=== PATIENT | female | born 1975 | race American Indian/Alaskan Native ===

== ENCOUNTER 2018-01-28 14:40 | Emergency (ER) | payer OTHER ==
[2018-01-28 14:49] VITALS: BP 121/75
[2018-01-28] MEDS ORDERED: NORCO 5/325 PO ONE (16:32)
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
--- NOTE | 2018-01-28 17:47 | XRay Report ---
FINAL REPORT EXAM: XR FINGER(S) 2+V RT HISTORY: right thumb pain TECHNIQUE: AP view of right hand and 2 views of right thumb. PRIORS: None. FINDINGS: No apparent fracture or dislocation. Joint spaces maintained. Soft tissues grossly unremarkable. IMPRESSION: 1. No acute osseous abnormality.
--- NOTE | 2018-01-28 17:48 | XRay Report ---
FINAL REPORT EXAM: XR WRIST 3+V RT HISTORY: right wrist pain TECHNIQUE: 4 views of right wrist. PRIORS: None. FINDINGS: No apparent fracture or dislocation. Joint spaces maintained. Soft tissues grossly unremarkable. IMPRESSION: 1. No acute osseous abnormality.
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
== END 2018-01-28 18:32 | disposition home or self-care (01) ==
LOC: ED 14:40
DX: S63.601A Unspecified sprain of right thumb, initial encounter (principal); Y04.2XXA Assault by strike against or bumped into by another person, initial encounter; Y93.89 Activity, other specified; Y92.89 Other specified places as the place of occurrence of the external cause; Y99.8 Other external cause status

== ENCOUNTER 2019-11-25 11:50 | Emergency (ER) | payer MEDICAID, OTHER ==
[2019-11-25 12:35] VITALS: BP 117/71
--- NOTE | 2019-11-25 12:37 | Event Note ---
ED Screening Note Date of service: 11/25/19 Time: 12:35 ED Screening Note: Pt complains of right hand pain after boxes fell on her at [employer] x 3 days ago This initial assessment/diagnostic orders/clinical plan/treatment(s) is/are subject to change based on patients health status, clinical progression and re- assessment by fellow clinical providers in the ED. Further treatment and workup at subsequent clinical providers discretion. Patient/guardian urged not to elope from the ED as their condition may be serious if not clinically assessed and managed. Initial orders include: xr hand
--- NOTE | 2019-11-25 13:23 | XRay Report ---
EXAMINATION: Right hand radiograph, 3 views CLINICAL INFORMATION: Right hand pain after trauma COMPARISON: None. FINDINGS: There is no evidence of acute bony fracture or significant soft tissue swelling of the righ t hand. Signer Name: Marlena Ashton MD Signed: 11/25/2019 1:18 PM Workstation Name: [id number]
[2019-11-25] MEDS ORDERED: HYDROcodone/ACETAMINOPHEN 5-325 MG TAB PO ONE (15:29)
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
== END 2019-11-25 16:16 | disposition home or self-care (01) ==
LOC: ED 11:50
DX: S63.8X1A Sprain of other part of right wrist and hand, initial encounter (principal); Z91.018 Allergy to other foods; Z98.890 Other specified postprocedural states; Z79.899 Other long term (current) drug therapy; X58.XXXA Exposure to other specified factors, initial encounter; Y93.89 Activity, other specified; Y92.89 Other specified places as the place of occurrence of the external cause; Y99.8 Other external cause status

== ENCOUNTER 2021-08-14 12:43 | Emergency (ER) | payer MEDICAID ==
[2021-08-14 12:50] VITALS: BP 140/84
[2021-08-14] MEDS ORDERED: ASPIRIN 325 MG TAB PO ONE (12:57)
[2021-08-14 13:34] LABS: Basophils # (Auto) 0.1 K/mm3 (0.0-0.1); Basophils % (Auto) 1.8 % (0.0-1.8); Eosinophils # (Auto) 0.3 K/mm3 (0.0-0.4); Eosinophils % (Auto) 3.4 % (0.0-4.3); Hematocrit 40.5 % (30.3-42.9); Hemoglobin 13.1 gm/dl (10.1-14.3); Lymphocytes # (Auto) 2.7 K/mm3 (1.2-5.4); Lymphocytes % (Auto) 33.2 % (13.4-35.0); Mean Corpuscular HGB Conc 32 % (30-34); Mean Corpuscular Volume 77 fl (79-97); Monocytes # (Auto) 0.6 K/mm3 (0.0-0.8); Platelet Count 324 K/mm3 (140-440); Red Blood Count 5.25 M/mm3 (3.65-5.03); Red Cell Distribution Width 14.2 % (13.2-15.2)
[2021-08-14 13:55] LABS: Alanine Aminotransferase 10 units/L (7-56); Albumin 4.4 g/dL (3.9-5); Blood Urea Nitrogen 7 mg/dL (7-17); Calcium 9.4 mg/dL (8.4-10.2); Hemolysis Index 7
[2021-08-14 13:58] LABS: BUN/Creatinine Ratio 10
--- NOTE | 2021-08-14 14:49 | XRay Report ---
XR chest routine 2V INDICATION / CLINICAL INFORMATION: CHEST PAIN. COMPARISON: None available. FINDINGS: SUPPORT DEVICES: None. HEART /PULMONARY VASCULATURE: No significant abnormality. LUNGS / PLEURA: No significant pulmonary or pleural abnormality. No pneumothorax. ADDITIONAL FINDINGS: No significant additional findings. IMPRESSION: 1. No acute findings. Signer Name: Oscar Thurman MD Signed: 08/14/2021 2:45 PM Workstation Name: [id number]
[2021-08-14] MEDS ORDERED: KETOROLAC 30 MG/1 ML INJ IM ONE (15:04)
--- NOTE | 2021-08-14 15:39 | Vascular Lab Report ---
DUPLEX DOPPLER LOWER EXTREMITY VEINS, RIGHT INDICATION: Right leg pain. TECHNIQUE: Duplex doppler imaging was performed through the veins of the right lower extremity using venous comp ression and other maneuvers. COMPARISON: None available. FINDINGS: Common Femoral vein: Negative. Superficial Femoral vein: Negative. Popliteal vein: Negative. Calf veins: Negative. Additional findings: None. IMPRESSION: 1. No sonographic evidence for DVT in the right lower extremity. Signer Name: Marlena Ashton MD Signed: 08/14/2021 3:34 PM Workstation Name: [email or web address]
--- NOTE | 2021-08-14 16:36 | Emergency Department Report ---
ED Chest Pain HPI - General Chief Complaint: Chest Pain Stated Complaint: CHEST PAIN Time Seen by Provider: 08/14/21 14:58 Source: patient Mode of arrival: Ambulatory Limitations: No Limitations - History of Present Illness Initial Comments: Patient presents with chest pain that is been going on for the last few days patient's chest pain is moderate she states that she feels a pressure type feeling in her chest. She is also having some right leg pain the pain does not spread anywhere. Patient denies any nausea or vomiting any trauma to her chest she does not smoke or drink. Patient also works at [employer]. Severity scale (0 -10): 7 - Related Data Previous Rx's Medication Instructions Recorded Last Taken Type Prednisone 60 mg PO QDAY #21 tablet 06/29/13 Unknown Rx Naphazoline HCl/Pheniramine 10 ml OU Q4H #1 bottle 06/05/14 Unknown Rx [Naphcon-A Eye Drops] Colloidal Oatmeal [Oatmeal Bath] 1 each TP QDAY #15 packet 04/12/15 Unknown Rx DOXYCYCLINE Hyclate [Vibramycin 100 mg PO Q12HR #30 capsule 04/12/15 Unknown Rx CAP] Loratadine (Nf) [Claritin] 10 mg PO DAILY #30 tablet 04/12/15 Unknown Rx Prednisone [predniSONE 10 mg 10 mg PO .TAPER #1 tab.ds.pk 04/12/15 Unknown Rx (6-Day Pack, 21 Tabs)] HYDROcodone/APAP 5-325 [[place] 1 each PO Q8H PRN #12 tablet 01/28/18 Unknown Rx 5/325] Cyclobenzaprine [Flexeril] 10 mg PO QHS PRN #20 tablet 11/25/19 Unknown Rx Naproxen [Naprosyn TAB] 375 mg PO BID #20 tablet 11/25/19 Unknown Rx Naproxen 250 mg PO Q6H #20 tablet 08/14/21 Unknown Rx Allergies Allergy/AdvReac Type Severity Reaction Status Date / Time shellfish derived Allergy Unknown Verified 11/25/19 12:10 Heart Score - HEART Score History: Slightly suspicious EKG: Normal Age: 45-65 Risk factors: 1-2 risk factors Troponin: < normal limit HEART Score: 2 - EKG Read Time Time EKG Completed: 12:55 EKG Read Time: 12:55 ED Review of Systems ROS: Stated complaint: CHEST PAIN Other details as noted in HPI Constitutional: denies: chills, fever Eyes: denies: eye pain, eye discharge, vision change ENT: denies: ear pain, throat pain Respiratory: denies: cough, shortness of breath, wheezing Cardiovascular: chest pain. denies: palpitations Endocrine: no symptoms reported Gastrointestinal: denies: abdominal pain, nausea, diarrhea Genitourinary: denies: urgency, dysuria, discharge Musculoskeletal: denies: back pain, joint swelling, arthralgia Skin: denies: rash, lesions Neurological: denies: headache, weakness, paresthesias Psychiatric: denies: anxiety, depression Hematological/Lymphatic: denies: easy bleeding, easy bruising ED Past Medical Hx - Past Medical History Additional medical history: eczema - Surgical History Additional Surgical History: x 2. ectopic - Social History Smoking Status: Never Smoker Substance Use Type: None - Medications Home Medications: Home Medications Medication Instructions Recorded Confirmed Last Taken Type Prednisone 60 mg PO QDAY #21 tablet 06/29/13 Unknown Rx Naphazoline HCl/Pheniramine 10 ml OU Q4H #1 bottle 06/05/14 Unknown Rx [Naphcon-A Eye Drops] Colloidal Oatmeal [Oatmeal Bath] 1 each TP QDAY #15 packet 04/12/15 Unknown Rx DOXYCYCLINE Hyclate [Vibramycin 100 mg PO Q12HR #30 capsule 04/12/15 Unknown Rx CAP] Loratadine (Nf) [Claritin] 10 mg PO DAILY #30 tablet 04/12/15 Unknown Rx Prednisone [predniSONE 10 mg 10 mg PO .TAPER #1 tab.ds.pk 04/12/15 Unknown Rx (6-Day Pack, 21 Tabs)] HYDROcodone/APAP 5-325 [[place] 1 each PO Q8H PRN #12 tablet 01/28/18 Unknown Rx 5/325] Cyclobenzaprine [Flexeril] 10 mg PO QHS PRN #20 tablet 11/25/19 Unknown Rx Naproxen [Naprosyn TAB] 375 mg PO BID #20 tablet 11/25/19 Unknown Rx Naproxen 250 mg PO Q6H #20 tablet 08/14/21 Unknown Rx ED Physical Exam - General Limitations: No Limitations General appearance: alert, in no apparent distress - Head Head exam: Present: atraumatic, normocephalic - Eye Eye exam: Present: normal appearance - ENT ENT exam: Present: mucous membranes moist - Neck Neck exam: Present: normal inspection - Respiratory Respiratory exam: Present: normal lung sounds bilaterally. Absent: respiratory distress - Cardiovascular Cardiovascular Exam: Present: regular rate, normal rhythm. Absent: systolic murmur, diastolic murmur, rubs, gallop - GI/Abdominal GI/Abdominal exam: Present: soft, normal bowel sounds - Extremities Exam Extremities exam: Present: normal inspection - Back Exam Back exam: Present: normal inspection - Neurological Exam Neurological exam: Present: alert, oriented X3 - Psychiatric Psychiatric exam: Present: normal affect, normal mood - Skin Skin exam: Present: warm, dry, intact, normal color. Absent: rash ED Course Vital Signs 08/14/21 08/14/21 12:44 15:11 Temperature 98.7 F Pulse Rate 111 H Respiratory 18 18 Rate Blood Pressure 140/84 [Right] O2 Sat by Pulse 100 Oximetry ED Medical Decision Making - Lab Data Result diagrams: 08/14/21 13:03 08/14/21 13:03 Lab Results 08/14/21 08/14/21 08/14/21 Range/Units 13:03 13:03 15:45 WBC 8.2 (4.5-11.0) K/mm3 RBC 5.25 H (3.65-5.03) M/mm3 Hgb 13.1 (10.1-14.3) gm/dl Hct 40.5 (30.3-42.9) % MCV 77 L (79-97) fl MCH 25 L (28-32) pg MCHC 32 (30-34) % RDW 14.2 (13.2-15.2) % Plt Count 324 (140-440) K/mm3 Lymph % (Auto) 33.2 (13.4-35.0) % [place] % (Auto) 7.0 (0.0-7.3) % Eos % (Auto) 3.4 (0.0-4.3) % Baso % (Auto) 1.8 (0.0-1.8) % Lymph # (Auto) 2.7 (1.2-5.4) K/mm3 [place] # (Auto) 0.6 (0.0-0.8) K/mm3 Eos # (Auto) 0.3 (0.0-0.4) K/mm3 Baso # (Auto) 0.1 (0.0-0.1) K/mm3 Seg Neutrophils % 54.6 (40.0-70.0) % Seg Neutrophils # 4.5 (1.8-7.7) K/mm3 Sodium 141 (137-145) mmol/L Potassium 3.4 L (3.6-5.0) mmol/L Chloride 103.6 (98-107) mmol/L Carbon Dioxide 20 L (22-30) mmol/L Anion Gap 21 mmol/L BUN 7 (7-17) mg/dL Creatinine 0.7 (0.6-1.2) mg/dL Estimated GFR > 60 ml/min BUN/Creatinine Ratio 10 % Glucose 78 (65-100) mg/dL Calcium 9.4 (8.4-10.2) mg/dL Total Bilirubin 0.50 (0.1-1.2) mg/dL AST 15 (5-40) units/L ALT 10 (7-56) units/L Alkaline Phosphatase 90 (35-129) units/L Troponin T < 0.010 < 0.010 (0.00-0.029) ng/mL Total Protein 7.7 (6.3-8.2) g/dL Albumin 4.4 (3.9-5) g/dL Albumin/Globulin Ratio 1.3 % - EKG Data -: EKG Interpreted by Me - EKG Data 08/14/21 16:45 EKG time 1254 rate 77 sinus rhythm left atrial enlargement no ST segment elevation no T wave inversion. - Radiology Data Radiology results: report reviewed, image reviewed Cxr: no acute cardiopulmonary disease - Medical Decision Making Chief medical diagnosis: Non-STEMI differential medical diagnosis: Pericarditis, costochondritis, DVT Ultrasound troponin IM pain medication and I will discharge patient home with follow-up with. ED work-up is unremarkable I will discharge patient. Additional verbal discharge instructions were given. Critical care attestation.: If time is entered above; I have spent that time in minutes in the direct care of this critically ill patient, excluding procedure time. ED Disposition Clinical Impression: Right leg pain Chest pain Qualifiers: Chest pain type: unspecified Qualified Code(s): R07.9 - Chest pain, unspecified Disposition: HOME / SELF CARE / HOMELESS Is pt being admited?: No Does the pt Need Aspirin: No Condition: Stable Instructions: Nonspecific Chest Pain, Adult Prescriptions: Naproxen 250 mg PO Q6H #20 tablet Referrals: PRIMARY CARE, [Primary Care Provider] - 3-5 Days
--- NOTE | 2021-08-15 09:03 | Electrocardiograph Report ---
[facility] Test Date: 2021-08-14 Test Time: 12:54:46 Pat Name: SONYA BRODERICK Department: Room: Gender: F [employer]: TV : 1975 Requested By: MASHA BAILEY Order Number: [id number] Reading MD: Gerardo Moore Measurements Intervals [place] Rate: 77 P: 53 [place]: 134 QRS: 49 QRSD: 77 T: 23 QT: 411 QTc: 464 Interpretive Statements Sinus rhythm Probable left atrial enlargement No previous ECG available for comparison Electronically Signed On 08-15-2021 9:03:22 EST by Gerardo Moore
== END 2021-08-14 17:16 | disposition home or self-care (01) ==
LOC: ED 12:43
DX: M79.604 Pain in right leg (principal); R07.9 Chest pain, unspecified; Z91.013 Allergy to seafood; Z87.2 Personal history of diseases of the skin and subcutaneous tissue
CPT/HCPCS: 36415; 71046; 80053; 84484; 85025; 93005; 93971; 96372; 99284; J1885

== ENCOUNTER 2021-10-04 08:07 | Emergency (ER) | payer MEDICAID ==
--- NOTE | 2021-10-04 09:06 | XRay Report ---
CHEST 2 VIEWS INDICATION / CLINICAL INFORMATION: COUGH WORSENING AFTER HAVING COVID. COMPARISON: 08/14/2021 FINDINGS: SUPPORT DEVICES: None. HEART / MEDIASTINUM: No significant abnormality. LUNGS / PLEURA: No significant pulmonary or pleural abnormality. No pneumothorax. ADDITIONAL FINDINGS: No significant additional findings. IMPRESSION: 1. No acute findings. Signer Name: Tru Tucker MD Signed: 10/04/2021 9:02 AM Workstation Name: [id number]
[2021-10-04] MEDS ORDERED: dexAMETHasone 4 MG/ML VIAL IV ONE (09:37)
[2021-10-04] MEDS ORDERED: dexAMETHasone 20 MG/5 ML VIAL IV ONE (09:37)
--- NOTE | 2021-10-04 09:38 | Emergency Department Report ---
ED General Adult HPI - General Chief complaint: Pain General Stated complaint: DISCOMFORT AFTER COVID POSITIVE Time Seen by Provider: 10/04/21 09:00 Source: patient Mode of arrival: Ambulatory Limitations: No Limitations - History of Present Illness Initial comments: 45-year-old female who denies any significant past medical history presents to the ER today with Covid-like flulike symptoms. Patient states that she was first diagnosed with Covid around September 12. She states that she had a typical URI symptoms, cough, congestion and fever. She states that she had started to feel better for about 2 days, but last week Wednesday she states that her symptoms returned, with nasal congestion, rhinorrhea, nonproductive cough, generalized body aches but more so in the flanks and lower back, urinary frequency, generalized fatigue and recently she started having tightness in the substernal chest. She reports no wheezing, or shortness of breath. She reports no lower extremity swelling or calf pain. She states that she is only been taking [id number] medications. She has not been prescribed any medications. She states that she did have a COVID-19 vaccine, the Pfizer back in February 2021. She denies any illicit drug use, tobacco use or alcohol abuse. MD Complaint: Sick -: days(s) - Related Data Previous Rx's Medication Instructions Recorded Last Taken Type Albuterol Mdi (or & Nicu Only) 2 puff IH QID PRN #8.5 gram 10/04/21 Unknown Rx [ProAir HFA Inhaler] Amoxicillin/Potassium Clav 1 each PO BID #14 10/04/21 Unknown Rx [Augmentin 875-125 Tablet] Cetirizine HCl [Zyrtec 10mg tab] 10 mg PO DAILY #30 10/04/21 Unknown Rx Promethazine /Codeine 5 ml PO Q6H PRN #100 ml 10/04/21 Unknown Rx [Phenergan/Codeine 6.25-10 mg/5 ml] dexAMETHasone [Decadron] 4 mg PO Q12H #10 tablet 10/04/21 Unknown Rx Allergies Allergy/AdvReac Type Severity Reaction Status Date / Time shellfish derived Allergy Unknown Verified 10/04/21 10:10 ED Review of Systems ROS: Stated complaint: DISCOMFORT AFTER COVID POSITIVE Other details as noted in HPI ED Past Medical Hx - Past Medical History Additional medical history: eczema - Surgical History Additional Surgical History: x 2. ectopic - Social History Smoking Status: Never Smoker Substance Use Type: None - Medications Home Medications: Home Medications Medication Instructions Recorded Confirmed Last Taken Type Albuterol Mdi (or & Nicu Only) 2 puff IH QID PRN #8.5 gram 10/04/21 Unknown Rx [ProAir HFA Inhaler] Amoxicillin/Potassium Clav 1 each PO BID #14 10/04/21 Unknown Rx [Augmentin 875-125 Tablet] Cetirizine HCl [Zyrtec 10mg tab] 10 mg PO DAILY #30 10/04/21 Unknown Rx Promethazine /Codeine 5 ml PO Q6H PRN #100 ml 10/04/21 Unknown Rx [Phenergan/Codeine 6.25-10 mg/5 ml] dexAMETHasone [Decadron] 4 mg PO Q12H #10 tablet 10/04/21 Unknown Rx ED Physical Exam - General Limitations: No Limitations ED Course Vital Signs 10/04/21 10/04/21 10/04/21 08:14 09:42 15:08 Temperature 98.8 F 97.7 F Pulse Rate 89 98 H Respiratory 20 16 Rate Blood Pressure 131/85 Blood Pressure 131/85 130/79 [Right] O2 Sat by Pulse 100 100 Oximetry ED Medical Decision Making - Lab Data Result diagrams: 10/04/21 09:45 10/04/21 09:45 - EKG Data -: EKG Interpreted by Ks EKG shows normal: sinus rhythm Rate: normal (68) - EKG Data Interpretation: normal EKG - Radiology Data Radiology results: report reviewed Patient: SONYA BRODERICK MR #: [id number] : 1975 Acct:[id number] Age/Sex: 45 / F ADM Date: 10/04/21 Loc: ED Attending Dr: Ordering Physician: AVERY BRIDGES Date of Service: 10/04/21 Procedure(s): XR chest routine 2V Accession Number(s): [id number] cc: AVERY BRIDGES Fluoro Time In Minutes: CHEST 2 VIEWS INDICATION / CLINICAL INFORMATION: COUGH WORSENING AFTER HAVING COVID. COMPARISON: 08/14/2021 FINDINGS: SUPPORT DEVICES: None. HEART / MEDIASTINUM: No significant abnormality. LUNGS / PLEURA: No significant pulmonary or pleural abnormality. No pneumothorax. ADDITIONAL FINDINGS: No significant additional findings. IMPRESSION: 1. No acute findings. Signer Name: Tru Tucker MD Signed: 10/04/2021 9:02 AM Workstation Name: [id number] Transcribed By: TL Dictated By: Tru Tucker MD Electronically Authenticated By: Tru Tucker MD Signed Date/Time: 10/04/21901 DD/ 0 TD/TT: - Medical Decision Making Work today unremarkable including normal chest x-ray. Patient vital signs were stable without any signs of tachycardia, hypotension or hypoxia. She was also afebrile. She did receive IV fluids, and IV meds after which she did start feeling better. She was not toxic, was significantly ill-appearing, and she was not in any acute respiratory or pain distress. She had no meningeal signs on exam. Abdomen was soft and nontender, and she was neurologically intact with a normal gait. Based on patient current condition, and unremarkable work-up including stable vital signs there is no indication for admission to the hospital at this time. Discussed all results with patient. Informed her that symptoms could still be related to Covid, but since her symptoms have been ongoing since September 11 will cover for possible bacterial sinus infection,/bronchitis. Recommend to continue drinking lots of fluids. She can take Tylenol and ibuprofen for pain. Recommend follow-up with her PCP. Patient stable at time of discharge Critical care attestation.: If time is entered above; I have spent that time in minutes in the direct care of this critically ill patient, excluding procedure time. ED Disposition Clinical Impression: COVID-19 virus infection, Sinusitis, URI with cough and congestion Disposition: HOME / SELF CARE / HOMELESS Is pt being admited?: No Does the pt Need Aspirin: No Condition: Stable Instructions: Cough, Adult, [id number], Upper Respiratory Infection, Adult, Sinusitis, Adult, Vyjn-jk-Nruy, COVID-19: How to Protect Yourself and Others - [facility] Additional Instructions: Take the medications given here as prescribed. Drink lots of fluids. You can take Tylenol and ibuprofen for any pain or fever. Follow-up with your primary care doctor next week. Return to the ER if your symptoms worsens or changes in any way. Prescriptions: Amoxicillin/Potassium Clav [Augmentin 875-125 Tablet] 1 each PO BID #14 dexAMETHasone [Decadron] 4 mg PO Q12H #10 tablet Promethazine /Codeine [Phenergan/Codeine 6.25-10 mg/5 ml] 5 ml PO Q6H PRN #100 ml PRN Reason: cough Albuterol Mdi (or & Nicu Only) [ProAir HFA Inhaler] 2 puff IH QID PRN #8.5 gram PRN Reason: Shortness Of Breath Cetirizine HCl [Zyrtec 10mg tab] 10 mg PO DAILY #30 Referrals: PRIMARY CARE,MD [Primary Care Provider] - 3-5 Days Forms: Work/School Release Form(ED) Time of Disposition: 12:27
[2021-10-04 09:48] LABS: Bilirubin,Urine NEG (Negative); Blood,Urine NEG (Negative); Color,Urine Yellow (Yellow); Mucus,Urine FEW /HPF; Urobilinogen,Urine < 2.0 mg/dL (<2.0)
[2021-10-04 10:20] LABS: Basophils # (Auto) 0.2 K/mm3 (0.0-0.1); Basophils % (Auto) 2.7 % (0.0-1.8); Eosinophils # (Auto) 0.2 K/mm3 (0.0-0.4); Eosinophils % (Auto) 3.3 % (0.0-4.3); Hematocrit 40.6 % (30.3-42.9); Hemoglobin 12.6 gm/dl (10.1-14.3); Lymphocytes # (Auto) 1.9 K/mm3 (1.2-5.4); Lymphocytes % (Auto) 27.5 % (13.4-35.0); Mean Corpuscular HGB Conc 31 % (30-34); Mean Corpuscular Volume 78 fl (79-97); Monocytes # (Auto) 0.6 K/mm3 (0.0-0.8); Monocytes % (Auto) 8.6 % (0.0-7.3); Platelet Count 329 K/mm3 (140-440); Red Blood Count 5.19 M/mm3 (3.65-5.03); Red Cell Distribution Width 14.8 % (13.2-15.2)
[2021-10-04 10:41] LABS: Alanine Aminotransferase 13 units/L (7-56); Albumin 4.3 g/dL (3.9-5); Blood Urea Nitrogen 10 mg/dL (7-17); Calcium 9.1 mg/dL (8.4-10.2); Hemolysis Index 5
[2021-10-04 10:55] LABS: BUN/Creatinine Ratio 14
[2021-10-04] MEDS ORDERED: SODIUM CHLORIDE 0.9% 1000 ML 1,000 ML IV ONE (11:17)
[2021-10-04 15:16] VITALS: BP 130/79
--- NOTE | 2021-10-08 08:25 | Electrocardiograph Report ---
[facility] Test Date: 2021-10-04 Test Time: 12:05:29 Pat Name: SONYA BRODERICK Department: Room: Gender: F Engraver Wood: MURPHY : 1975 Requested By: BRAULIO HARVEY Order Number: [id number] Reading MD: America Warner Measurements Intervals [place] Rate: 68 P: 33 CT: 125 QRS: 46 QRSD: 87 T: 14 QT: 402 QTc: 427 Interpretive Statements Sinus rhythm Compared to ECG 08/14/2021 12:54:46 No significant changes Electronically Signed On 10-08-2021 8:25:23 EST by America Warner
== END 2021-10-04 15:17 | disposition home or self-care (01) ==
LOC: ED 08:07
DX: U07.1 COVID-19 (principal); J32.9 Chronic sinusitis, unspecified; Z91.013 Allergy to seafood; Z98.890 Other specified postprocedural states; Z79.899 Other long term (current) drug therapy
CPT/HCPCS: 36415; 71046; 80053; 81001; 84703; 85025; 93005; 96361; 96374; 99284; J1100; J7030; Q0162

== ENCOUNTER 2021-11-21 09:31 | Emergency (ER) | payer MEDICAID ==
--- NOTE | 2021-11-21 11:03 | Emergency Department Report ---
ED Extremity Problem HPI - General Chief complaint: Extremity Injury, Lower Stated complaint: leg swelling, left and right Time Seen by Provider: 11/21/21 10:58 Source: patient Mode of arrival: Ambulatory Limitations: No Limitations - History of Present Illness Initial comments: 45-year-old -Armenian female resents to the emergency room for bilateral lower leg swelling with right leg worse. She complains of calf pain and tenderness and pain that shoots up from the back of her right knee to her groin area. Patient had a recent diagnosis of Covid and has been dealing with long haul lung issues. She also complains of heaviness in her chest. She has seen the welder journeyman and is scheduled for echocardiogram and a CT of her chest. She is requesting a referral to a delivery truck driver heavy as she is constantly has chest discomfort with breath. MD Complaint: extremity pain, extremity swelling Onset/Timin -: days(s) Location: left, right (Worse in right), lower extremity History of Same: No -: Yes myalgia, Yes associated dyspnea, Yes associated chest pain Quality: stabbing, aching, sharp Consistency: constant Improves with: nothing Worsens with: walking, palpation - Related Data Previous Rx's Medication Instructions Recorded Last Taken Type Albuterol Mdi (or & Nicu Only) 2 puff IH QID PRN #8.5 gram 10/04/21 Unknown Rx [ProAir HFA Inhaler] Amoxicillin/Potassium Clav 1 each PO BID #14 10/04/21 Unknown Rx [Augmentin 875-125 Tablet] Cetirizine HCl [Zyrtec 10mg tab] 10 mg PO DAILY #30 10/04/21 Unknown Rx Promethazine /Codeine 5 ml PO Q6H PRN #100 ml 10/04/21 Unknown Rx [Phenergan/Codeine 6.25-10 mg/5 ml] dexAMETHasone [Decadron] 4 mg PO Q12H #10 tablet 10/04/21 Unknown Rx Ibuprofen [Motrin 800 MG tab] 800 mg PO Q8HR PRN #30 tablet 11/21/21 Unknown Rx Allergies Allergy/AdvReac Type Severity Reaction Status Date / Time latex Allergy Hives Verified 11/21/21 09:36 shellfish derived Allergy Unknown Verified 11/21/21 09:36 ED Review of Systems ROS: Stated complaint: leg swelling, left and right Other details as noted in HPI ED Past Medical Hx - Past Medical History Additional medical history: eczema - Surgical History Additional Surgical History: x 2. ectopic - Social History Smoking Status: Never Smoker Substance Use Type: None - Medications Home Medications: Home Medications Medication Instructions Recorded Confirmed Last Taken Type Albuterol Mdi (or & Nicu Only) 2 puff IH QID PRN #8.5 gram 10/04/21 Unknown Rx [ProAir HFA Inhaler] Amoxicillin/Potassium Clav 1 each PO BID #14 10/04/21 Unknown Rx [Augmentin 875-125 Tablet] Cetirizine HCl [Zyrtec 10mg tab] 10 mg PO DAILY #30 10/04/21 Unknown Rx Promethazine /Codeine 5 ml PO Q6H PRN #100 ml 10/04/21 Unknown Rx [Phenergan/Codeine 6.25-10 mg/5 ml] dexAMETHasone [Decadron] 4 mg PO Q12H #10 tablet 10/04/21 Unknown Rx Ibuprofen [Motrin 800 MG tab] 800 mg PO Q8HR PRN #30 tablet 11/21/21 Unknown Rx ED Physical Exam - General Limitations: No Limitations General appearance: alert, in distress - Head Head exam: Present: atraumatic, normocephalic - Eye Eye exam: Present: normal appearance - ENT ENT exam: Present: mucous membranes moist, normal external ear exam - Neck Neck exam: Present: normal inspection - Respiratory Respiratory exam: Absent: respiratory distress, accessory muscle use - Cardiovascular Cardiovascular Exam: Present: regular rate - Extremities Exam Extremities exam: Present: full ROM, tenderness (Right groin), calf tenderness (Right greater than left) - Back Exam Back exam: Present: normal inspection, full ROM - Neurological Exam Neurological exam: Present: alert, oriented X3, normal gait - Psychiatric Psychiatric exam: Present: normal affect, normal mood - Skin Skin exam: Present: warm, dry, intact, normal color. Absent: rash ED Course Vital Signs 11/21/21 09:38 Temperature 98.8 F Pulse Rate 82 Respiratory 16 Rate Blood Pressure 127/79 O2 Sat by Pulse 100 Oximetry ED Medical Decision Making - Radiology Data Radiology results: report reviewed [facility] [address] [place] [address] XRay Report Signed Patient: SONYA BRODERICK MR #: [id number] : 1975 Acct:[id number] Age/Sex: 45 / F ADM Date: 11/21/21 Loc: ED Attending Dr: Ordering Physician: LILI ALCANTAR Date of Service: 11/21/21 Procedure(s): XR chest routine 2V Accession Number(s): [id number] cc: LILI ALCANTAR Fluoro Time In Minutes: CHEST 2 VIEWS INDICATION: sob chest pressure. COMPARISON: 10/04/2021 FINDINGS: SUPPORT DEVICES: None. HEART: Within normal limits. LUNGS/PLEURA: No acute air space or interstitial disease. No pneumothorax. ADDITIONAL FINDINGS: None. IMPRESSION: 1. No acute findings. Signer Name: Dipak Pretty MD Signed: 11/21/2021 1:21 PM Workstation Name: [id number] Transcribed By: Dictated By: Dipak Pretty MD Electronically Authenticated By: Dipak Pretty MD Signed Date/Time: 11/21/211320 DD/ 20 TD/TT: - Medical Decision Making 45-year-old -Armenian female resents to the emergency room for bilateral lower leg swelling with right leg worse. She complains of calf pain and tenderness and pain that shoots up from the back of her right knee to her groin area. Patient had a recent diagnosis of Covid and has been dealing with long haul lung issues. She also complains of heaviness in her chest. She has seen the welder journeyman and is scheduled for echocardiogram and a CT of her chest. She is requesting a referral to a delivery truck driver heavy as she is constantly has chest discomfort with breath. Bilateral lower leg venous Dopplers has been ordered. Chest x-ray ordered Critical care attestation.: If time is entered above; I have spent that time in minutes in the direct care of this critically ill patient, excluding procedure time. ED Disposition Clinical Impression: Bilateral leg pain Disposition: HOME / SELF CARE / HOMELESS Is pt being admited?: No Does the pt Need Aspirin: No Condition: Stable Instructions: Pain Without a Known Cause Additional Instructions: Chest x-ray hand venous Dopplers are negative for any acute findings. I recommend Tylenol ibuprofen for pain. Follow-up with the delivery truck driver heavy and your welder journeyman for further work-up. Prescriptions: Ibuprofen [Motrin 800 MG tab] 800 mg PO Q8HR PRN #30 tablet PRN Reason: Pain , Severe (7-10) Referrals: PRIMARY CARE, [Primary Care Provider] - 3-5 Days OTTO SETH MD [Staff Physician] - 3-5 Days Time of Disposition: 14:12
--- NOTE | 2021-11-21 12:01 | Vascular Lab Report ---
DUPLEX DOPPLER LOWER EXTREMITY VEINS, BILATERAL INDICATION: Calf pain and upper thigh near groin pain. TECHNIQUE: Duplex doppler imaging was performed through the veins of both lower extremities using ve nous compression and other maneuvers. COMPARISON: 08/14/2021. FINDINGS: Right Common femoral vein: Negative. Right Superficial femoral vein: Negative. Right Popliteal vein: Negative. Right Calf veins: Negative. Left Common femoral vein: Negative. Left Superficial femoral vein: Negative. Left Popliteal vein: Negative. Left Calf veins: Negative. Additional findings: None. IMPRESSION: No sonographic evidence for DVT in either lower extremity. Signer Name: Dionisio Lo Jr, MD Signed: 11/21/2021 11:57 AM Workstation Name: [id number]
--- NOTE | 2021-11-21 13:26 | XRay Report ---
CHEST 2 VIEWS INDICATION: sob chest pressure. COMPARISON: 10/04/2021 FINDINGS: SUPPORT DEVICES: None. HEART: Within normal limits. LUNGS/PLEURA: No acute air space or interstitial disease. No pneumothorax. ADDITIONAL FINDINGS: None. IMPRESSION: 1. No acute findings. Signer Name: Dipak Pretty MD Signed: 11/21/2021 1:21 PM Workstation Name: [id number]
[2021-11-21 15:03] VITALS: BP 118/73
== END 2021-11-21 15:03 | disposition home or self-care (01) ==
LOC: ED 09:31
DX: M79.604 Pain in right leg (principal); M79.605 Pain in left leg; R22.43 Localized swelling, mass and lump, lower limb, bilateral; Z98.890 Other specified postprocedural states; Z91.013 Allergy to seafood; Z91.040 Latex allergy status
CPT/HCPCS: 71046; 93970; 99284

== ENCOUNTER 2021-11-28 11:15 | Emergency (ER) | payer MEDICAID ==
[2021-11-28 11:20] VITALS: BP 146/82
--- NOTE | 2021-11-28 11:46 | Emergency Department Report ---
ED Abdominal Pain HPI - General Chief Complaint: Dizziness Stated Complaint: DIZZY/AB PAIN Time Seen by Provider: 11/28/21 11:44 Source: patient Mode of arrival: Ambulatory Limitations: No Limitations - History of Present Illness Initial Comments: 45 yof presents to ed for evaluation of several month history of abdominal pain and recent onset of dizziness. She states that she has had intermittent abdominal pain since having COVID a few months ago, but over the past few days, abdominal pain has gotten worse. She has had some nausea along with decreased appetite but denies vomiting, diarrhea, fever, dysuria, and vaginal discharge. She states that she had some dizziness today. MD Complaint: abdominal pain -: Gradual, month(s) (2-3) Location: diffuse Radiation: none Migration to: no migration (but worse to LL and LUQ) Severity scale (0 -10): 7 Quality: aching Consistency: constant Worsens With: movement Associated Symptoms: nausea. denies: vomiting, diarrhea, fever, chills, constipation, dysuria, hematemesis, hematochezia, melena, hematuria - Related Data Previous Rx's Medication Instructions Recorded Last Taken Type Albuterol Mdi (or & Nicu Only) 2 puff IH QID PRN #8.5 gram 10/04/21 Unknown Rx [ProAir HFA Inhaler] Amoxicillin/Potassium Clav 1 each PO BID #14 10/04/21 Unknown Rx [Augmentin 875-125 Tablet] Cetirizine HCl [Zyrtec 10mg tab] 10 mg PO DAILY #30 10/04/21 Unknown Rx Promethazine /Codeine 5 ml PO Q6H PRN #100 ml 10/04/21 Unknown Rx [Phenergan/Codeine 6.25-10 mg/5 ml] dexAMETHasone [Decadron] 4 mg PO Q12H #10 tablet 10/04/21 Unknown Rx Ibuprofen [Motrin 800 MG tab] 800 mg PO Q8HR PRN #30 tablet 11/21/21 Unknown Rx Polyethylene Glycol 3350 [Miralax] 119 gm PO DAILY #1 bottle 11/28/21 Unknown Rx Allergies Allergy/AdvReac Type Severity Reaction Status Date / Time latex Allergy Hives Verified 11/21/21 09:36 shellfish derived Allergy Unknown Verified 11/21/21 09:36 ED Review of Systems ROS: Stated complaint: DIZZY/AB PAIN Other details as noted in HPI Comment: All other systems reviewed and negative Constitutional: denies: chills, diaphoresis, fever, malaise, weakness Eyes: denies: eye pain, eye discharge ENT: denies: ear pain, throat pain Respiratory: denies: cough, orthopnea, shortness of breath, SOB with exertion, SOB at rest Cardiovascular: denies: chest pain, palpitations, dyspnea on exertion, orthopnea, edema, syncope, paroxysmal nocturnal dyspnea Endocrine: no symptoms reported Gastrointestinal: abdominal pain, nausea. denies: vomiting, diarrhea, hematemesis, melena, hematochezia Genitourinary: denies: urgency, dysuria, frequency, hematuria, discharge Musculoskeletal: denies: back pain, joint swelling Skin: denies: rash, lesions, change in color Neurological: denies: headache, weakness, numbness Psychiatric: denies: anxiety, depression Hematological/Lymphatic: denies: easy bleeding, easy bruising ED Past Medical Hx - Past Medical History Additional medical history: eczema - Surgical History Additional Surgical History: x 2. ectopic - Social History Smoking Status: Never Smoker Substance Use Type: None - Medications Home Medications: Home Medications Medication Instructions Recorded Confirmed Last Taken Type Albuterol Mdi (or & Nicu Only) 2 puff IH QID PRN #8.5 gram 10/04/21 Unknown Rx [ProAir HFA Inhaler] Amoxicillin/Potassium Clav 1 each PO BID #14 10/04/21 Unknown Rx [Augmentin 875-125 Tablet] Cetirizine HCl [Zyrtec 10mg tab] 10 mg PO DAILY #30 10/04/21 Unknown Rx Promethazine /Codeine 5 ml PO Q6H PRN #100 ml 10/04/21 Unknown Rx [Phenergan/Codeine 6.25-10 mg/5 ml] dexAMETHasone [Decadron] 4 mg PO Q12H #10 tablet 10/04/21 Unknown Rx Ibuprofen [Motrin 800 MG tab] 800 mg PO Q8HR PRN #30 tablet 11/21/21 Unknown Rx Polyethylene Glycol 3350 [Miralax] 119 gm PO DAILY #1 bottle 11/28/21 Unknown Rx ED Physical Exam - General Limitations: No Limitations General appearance: alert, in no apparent distress - Head Head exam: Present: atraumatic, normocephalic - Eye Eye exam: Present: normal appearance. Absent: conjunctival injection - Neck Neck exam: Present: normal inspection. Absent: tenderness, lymphadenopathy - Respiratory Respiratory exam: Present: normal lung sounds bilaterally. Absent: respiratory distress, wheezes, rales, rhonchi, chest wall tenderness - Cardiovascular Cardiovascular Exam: Present: regular rate, tachycardia - GI/Abdominal GI/Abdominal exam: Present: soft, distended, tenderness (LLQ and LUQ), normal bowel sounds - Extremities Exam Extremities exam: Present: normal inspection - Back Exam Back exam: Present: normal inspection. Absent: tenderness, CVA tenderness (R), CVA tenderness (L), muscle spasm, paraspinal tenderness, vertebral tenderness - Neurological Exam Neurological exam: Present: alert, oriented X3 - Psychiatric Psychiatric exam: Present: normal affect, normal mood - Skin Skin exam: Present: warm, dry, intact, normal color ED Course Vital Signs 11/28/21 11:16 Temperature 98.4 F Pulse Rate 103 H Respiratory 18 Rate Blood Pressure 146/82 [Right] O2 Sat by Pulse 97 Oximetry ED Medical Decision Making - Lab Data Result diagrams: 11/28/21 11:51 11/28/21 11:51 - EKG Data EKG shows normal: sinus rhythm - EKG Data Interpretation: no acute changes, normal EKG - Radiology Data Radiology results: report reviewed, image reviewed CT abdomen and pelvis with contrast IMPRESSION: 1. No acute abnormality of the abdomen or pelvis. 2. Moderate colonic stool burden, may reflect constipation. No evidence of localized bowel inflammation or obstruction. 3. Fibroid uterus with 3.7 cm simple right adnexal cyst. No routine follow-up is required. 4. Other incidental findings as above. - Medical Decision Making 45 yof presents to ed for evaluation of several month history of abdominal pain and recent onset of dizziness. She states that she has had intermittent abdominal pain since having COVID a few months ago, but over the past few days, abdominal pain has gotten worse. She has had some nausea along with decreased appetite but denies vomiting, diarrhea, fever, dysuria, and vaginal discharge. She states that she had some dizziness today. EKG wnl. CT noted to have constipation and uterine fibroids. Patient was given one time bottle of mag citrate and Miralax to take daily until she has some improvement. She was advised to increase dietary fiber and water intake. She verbalized understanding of and agreement with plan of care. Critical care attestation.: If time is entered above; I have spent that time in minutes in the direct care of this critically ill patient, excluding procedure time. ED Disposition Clinical Impression: Constipation Qualifiers: Constipation type: unspecified constipation type Qualified Code(s): K59.00 - Constipation, unspecified Fibroid, uterine Qualifiers: Uterine leiomyoma location: unspecified location Qualified Code(s): D25.9 - Le iomyoma of uterus, unspecified Disposition: 01 HOME / SELF CARE / HOMELESS Is pt being admited?: No Does the pt Need Aspirin: No Condition: Stable Instructions: Constipation, Adult, Sdyz-qf-Ysff, Uterine Fibroids, [id number] Additional Instructions: Take medications as prescribed. Increase fiber in your diet. Follow-up with your primary care provider if no improvement or worsening symptoms. Prescriptions: Polyethylene Glycol 3350 [Miralax] 119 gm PO DAILY #1 bottle Referrals: PRIMARY CAREMD [Referring] - 3-5 Days CRISELDA SANDOVAL MD [Staff Physician] - 3-5 Days Forms: Work/School Release Form(ED) Time of Disposition: 15:31
[2021-11-28 12:15] LABS: Hematocrit 36.4 % (30.3-42.9); Hemoglobin 12.1 gm/dl (10.1-14.3); Mean Corpuscular HGB Conc 33 % (30-34); Mean Corpuscular Volume 77 fl (79-97); Platelet Count 300 K/mm3 (140-440); Red Cell Distribution Width 14.6 % (13.2-15.2)
[2021-11-28 12:24] LABS: Alanine Aminotransferase 10 units/L (7-56); Albumin 3.8 g/dL (3.9-5); Blood Urea Nitrogen 7 mg/dL (7-17); Calcium 9.2 mg/dL (8.4-10.2); Hemolysis Index 31
[2021-11-28 12:41] LABS: BUN/Creatinine Ratio 10
[2021-11-28 13:12] LABS: HCG Qualitative,Urine Negative (Negative)
[2021-11-28 13:16] LABS: Bacteria,Urine 1+ /HPF (Negative); Bilirubin,Urine NEG (Negative); Blood,Urine NEG (Negative); Color,Urine Yellow (Yellow); Mucus,Urine FEW /HPF; Protein,Urine <15 mg/dL mg/dL (Negative); RBC,Urine < 1.0 /HPF (0.0-6.0); Urobilinogen,Urine < 2.0 mg/dL (<2.0)
--- NOTE | 2021-11-28 15:24 | Cat Scan Report ---
CT abdomen pelvis w con INDICATION / CLINICAL INFORMATION: abdominal pain omni 300 100ml. TECHNIQUE: Axial CT images were obtained through the abdomen and pelvis after 100 cc of Omnipaque [address] scans at this location are performed using CT dose reduction for ALARA by means of automated exposure control. COMPARISON: None available. FINDINGS: LOWER CHEST: No significant abnormality LIVER: No significant abnormality GALLBLADDER/BILIARY TREE: No significant abnormality PANCREAS: No significant abnormality SPLEEN: No significant abnormality ADRENALS: No significant abnormality KIDNEYS / URETER: No significant abnormality URINARY BLADDER: No significant abnormality REPRODUCTIVE ORGANS: Multiple uterine fibroids are present. There is a 3.7 cm simple appearing cyst i n the right adnexa. STOMACH / BOWEL: Small hiatal hernia. Small bowel is normal in caliber. Moderate stool in the colon. No evidence of localized colonic inflammation. The appendix is normal in caliber. LYMPH NODES: No significant adenopathy. VASCULATURE: No significant abnormality. OTHER: No free air, free fluid, or focal fluid collection is identified. 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 No acute ab normality. IMPRESSION: 1. No acute abnormality of the abdomen or pelvis. 2. Moderate colonic stool burden, may reflect constipation. No evidence of localized bowel inflammati on or obstruction. 3. Fibroid uterus with 3.7 cm simple right adnexal cyst. No routine follow-up is required. 4. Other incidental findings as above. Signer Name: Oscar Thurman MD Signed: 11/28/2021 3:19 PM Workstation Name: [id number]
[2021-11-28] MEDS ORDERED: MAGNESIUM CITRATE 300 ML ORAL LIQD PO ONE (15:31)
--- NOTE | 2021-11-30 11:44 | Electrocardiograph Report ---
[facility] Test Date: 2021-11-28 Test Time: 11:34:05 Pat Name: SONYA BRODERICK Department: Room: Gender: F Education Department Chair: MURPHY : 1975 Requested By: TIFFANIE PEÑA Order Number: [id number] Reading MD: Ross Morataya Measurements Intervals [place] Rate: 75 P: 47 NH: 130 QRS: 49 QRSD: 76 T: 16 QT: 364 QTc: 408 Interpretive Statements Sinus rhythm Compared to ECG 10/04/2021 12:05:29 No significant changes Electronically Signed On 11-30-2021 11:44:12 EST by Ross Morataya
== END 2021-11-28 16:43 | disposition home or self-care (01) ==
LOC: ED 11:15
DX: K59.00 Constipation, unspecified (principal); D25.9 Leiomyoma of uterus, unspecified; R42 Dizziness and giddiness; R10.12 Left upper quadrant pain; R10.32 Left lower quadrant pain; Z98.890 Other specified postprocedural states; Z91.040 Latex allergy status; Z91.013 Allergy to seafood; Z79.899 Other long term (current) drug therapy
CPT/HCPCS: 36415; 74177; 80053; 81001; 81025; 83690; 85027; 93005; 93010; 99284; Q9967

== ENCOUNTER 2021-12-05 10:30 | Outpatient (CLI) | payer BC | END 2021-12-05 10:31 | disposition home or self-care (01) | LOC: ECHO 10:30 | PROVIDERS: ATTEND Internal Medicine Cardiovascular Disease | DX: I08.0 Rheumatic disorders of both mitral and aortic valves (principal) | CPT/HCPCS: 93306; C8929 ==

== ENCOUNTER 2022-01-17 09:05 | Outpatient (CLI) | payer BC ==
[2022-01-17 10:25] LABS: Hemoglobin 12.7 gm/dl (10.1-14.3); Red Blood Count 5.04 M/mm3 (3.65-5.03)
[2022-01-17 10:26] LABS: Basophils # (Auto) 0.2 K/mm3 (0.0-0.1); Basophils % (Auto) 2.3 % (0.0-1.8); Eosinophils # (Auto) 0.2 K/mm3 (0.0-0.4); Eosinophils % (Auto) 3.6 % (0.0-4.3); Hematocrit 39.5 % (30.3-42.9); Lymphocytes % (Auto) 30.4 % (13.4-35.0); Mean Corpuscular HGB Conc 32 % (30-34); Mean Corpuscular Volume 78 fl (79-97); Monocytes # (Auto) 0.4 K/mm3 (0.0-0.8); Monocytes % (Auto) 6.7 % (0.0-7.3); Platelet Count 316 K/mm3 (140-440); Red Cell Distribution Width 13.5 % (13.2-15.2)
[2022-01-17 10:51] LABS: Alanine Aminotransferase 12 units/L (7-56); Albumin 4.3 g/dL (3.9-5); BUN/Creatinine Ratio 9; Blood Urea Nitrogen 7 mg/dL (7-17); Calcium 9.5 mg/dL (8.4-10.2); HDL Cholesterol 47 mg/dL (40-59); Hemolysis Index 0; LDL Cholesterol,Direct 172 mg/dL (50-130)
[2022-01-17 11:01] LABS: Erythrocyte Sedimentation Rate 10 mm/Hr (0-20)
[2022-01-21 12:18] LABS: ANA Screen, IFA Negative (Negative)
== END 2022-01-17 09:06 | disposition home or self-care (01) ==
LOC: LAB 09:05
PROVIDERS: ATTEND Nurse Practitioner Family
DX: Z00.00 Encounter for general adult medical examination without abnormal findings (principal); M25.50 Pain in unspecified joint; R53.81 Other malaise; R53.83 Other fatigue
CPT/HCPCS: 36415; 80053; 80061; 82607; 82747; 83735; 84443; 85025; 85652; 86038; 86431

== ENCOUNTER 2022-03-19 07:55 | Day surgery (SDC) | payer BC ==
[2022-03-19] MEDS ORDERED: ASPIRIN EC 81 MG TAB PO ONE (08:39)
[2022-03-19 08:47] LABS: Basophils # (Auto) 0.1 K/mm3 (0.0-0.1); Basophils % (Auto) 1.7 % (0.0-1.8); Eosinophils # (Auto) 0.3 K/mm3 (0.0-0.4); Eosinophils % (Auto) 3.5 % (0.0-4.3); Hematocrit 40.4 % (30.3-42.9); Hemoglobin 13.7 gm/dl (10.1-14.3); Lymphocytes # (Auto) 2.4 K/mm3 (1.2-5.4); Lymphocytes % (Auto) 27.7 % (13.4-35.0); Mean Corpuscular HGB Conc 34 % (30-34); Mean Corpuscular Volume 77 fl (79-97); Monocytes # (Auto) 0.7 K/mm3 (0.0-0.8); Monocytes % (Auto) 7.9 % (0.0-7.3); Platelet Count 332 K/mm3 (140-440); Red Blood Count 5.22 M/mm3 (3.65-5.03); Red Cell Distribution Width 14.1 % (13.2-15.2)
[2022-03-19 08:59] LABS: INR 0.91 (0.87-1.13)
[2022-03-19 09:00] LABS: Partial Thromboplastin Time 30.8 Sec. (24.2-36.6)
[2022-03-19 09:08] LABS: BUN/Creatinine Ratio 11; Blood Urea Nitrogen 10 mg/dL (7-17); Calcium 9.9 mg/dL (8.4-10.2); Hemolysis Index 145
[2022-03-19] MEDS ORDERED: ASPIRIN 81 MG TAB CHEW PO SCH (10:00)
[2022-03-19] MEDS ORDERED: HEPARIN/NS 5000 UNIT/500ML 1,000 ML IR ONE (10:16)
[2022-03-19] MEDS: SODIUM CHLORIDE 0.9% 500 ML 500 ML IV SCH ×2 (10:20→10:46)
[2022-03-19] MEDS: NITROGLYCERIN SYRINGE 3 ML ONE ×2 (10:44→11:03)
[2022-03-19] MEDS: HEPARIN 10,000 UNITS/10 ML VIAL ONE ×2 (10:47→11:03)
[2022-03-19] MEDS: VERAPAMIL 5 MG/2 ML INJ ONE ×2 (10:47→11:03)
[2022-03-19] MEDS: LIDOCAINE (1%) 10 MG/1 ML VIAL 20 ML MDV ONE ×2 (10:47→11:02)
[2022-03-19] MEDS: MIDAZOLAM 2 MG/2 ML INJ ONE ×2 (10:48→11:01)
[2022-03-19] MEDS: fentaNYL 100 MCG/2 ML INJ ONE ×2 (10:48→11:01)
[2022-03-19] MEDS ORDERED: diphenhydrAMINE 50 MG/ML VIAL ONE (11:02)
[2022-03-19] MEDS ORDERED: traMADol 50 MG TAB PO PRN (11:20)
--- NOTE | 2022-03-19 11:23 | Discharge Summary ---
Short Stay Discharge Plan Activity: advance as tolerated Weight Bearing Status: Full Weight Bearing Diet: low fat, low cholesterol, low salt Wound: keep clean and dry Special Instructions: smoking cessation, no heavy lifting (3 days) Follow up with: MONICA HAYWOOD MD [Primary Care Provider] - 7 Days ALONZO STYLES MD [Staff Physician] - 7 Days
[2022-03-19] MEDS ORDERED: SODIUM CHLORIDE 0.9% 1000 ML 1,000 ML IV SCH (11:30)
--- NOTE | 2022-03-19 11:52 | Cardiac Catherization Report ---
DATE OF SERVICE: 03/19/2022 REASON FOR PROCEDURE: Chest pain. PROCEDURES: 1. Left heart catheterization. 2. Selective left and right coronary angiography. 3. Left ventricular angiography. 4. Sedation time start 11:03, end 11:12. DESCRIPTION OF PROCEDURE: The patient was prepped and draped in a sterile fashion after informed consent. The right radial cath site was prepped and draped after negative Vu's test. The right radial artery was entered using Seldinger technique followed by placement of a 6-Slovenian hydrophilic sheath. Routine radial cocktail was administered via the sheath. Selective left and right coronary angiography was performed using #3.5 left Monique and a #4 right Monique. The right Monique catheter was used for left ventricular angiography. The catheters were then removed, sheath removed and hemostasis achieved using a TR band. The patient was returned to the postprocedure unit in stable condition. There were no complications. HEMODYNAMICS: Left ventricular end-diastolic pressure was less than 10. Ascending aortic pressure was 126/86. There was no significant pressure gradient on pullback across the aortic valve. CORONARY ANGIOGRAPHY: Left main coronary artery was angiographically normal. Left anterior descending artery and its diagonal branches were angiographically normal. The circumflex artery and its obtuse marginal branches were angiographically normal. The right coronary artery was dominant and similarly angiographically normal. There is normal left ventricular systolic function with ejection fraction greater than 65%. CONCLUSION: 1. Angiographically normal coronary arteries. 2. Normal left ventricular systolic function, ejection fraction greater than 65%. RECOMMENDATION: Risk factor modification. TID: [id number] RECEIPT: [id number] CA/EKT
[2022-03-19 15:02] VITALS: BP 119/79
--- NOTE | 2022-03-20 13:44 | Electrocardiograph Report ---
[facility] Test Date: 2022-03-19 Test Time: 09:21:35 Pat Name: SONYA BRODERICK Department: Room: Gender: F [employer]pe Machine Operator: REED : 1975 Requested By: AMERICA YOUSSEF Order Number: [id number] Reading MD: America Youssef Measurements Intervals [place] Rate: 75 P: 49 ND: 137 QRS: 49 QRSD: 84 T: 23 QT: 405 QTc: 453 Interpretive Statements Sinus rhythm Abnormal R-wave progression, early transition Compared to ECG 11/28/2021 11:34:05 No significant changes Electronically Signed On 03-20-2022 13:44:11 EDT by America Youssef
== END 2022-03-19 07:56 | disposition home or self-care (01) ==
LOC: CATHLABREC 07:55
PROVIDERS: ATTEND Internal Medicine Cardiovascular Disease
DX: R07.89 Other chest pain (principal); E78.00 Pure hypercholesterolemia, unspecified; K21.9 Gastro-esophageal reflux disease without esophagitis; Z91.013 Allergy to seafood; Z91.040 Latex allergy status; Z79.899 Other long term (current) drug therapy; Z98.890 Other specified postprocedural states; Z82.5 Family history of asthma and other chronic lower respiratory diseases
CPT/HCPCS: 36415; 80048; 85025; 85610; 85730; 93005; 93458; C1894; J1200; J1644; J1815; J2250; J3010; J7030; J7040; Q9967

== ENCOUNTER 2022-04-06 07:59 | Emergency (ER) | payer BC ==
[2022-04-06 08:40] VITALS: BP 113/69
[2022-04-06] MEDS ORDERED: KETOROLAC 10 MG TAB PO ONE (11:17)
--- NOTE | 2022-04-06 12:05 | Vascular Lab Report ---
VL venous duplex UE RT INDICATION / CLINICAL INFORMATION: right arm pain and swelling.. TECHNIQUE: Multiple grayscale sonographic images of left upper extremity were obtained utilizing a high-frequenc y linear array transducer with color Doppler, compression and other maneuvers when feasible. COMPARISON: None available. FINDINGS: No venous thrombosis is identified within the visualized extremity vasculature. ADDITIONAL FINDINGS: None. IMPRESSION: 1. No sonographic evidence for DVT in the right upper extremity. Signer Name: Derrick Hernandez MD Signed: 04/06/2022 12:01 PM Workstation Name: [email or web address]
--- NOTE | 2022-04-06 12:30 | Emergency Department Report ---
ED Extremity Problem HPI - General Chief complaint: Extremity Problem,Nontraumatic Stated complaint: KNOT IN RT ARM/LEG Time Seen by Provider: 04/06/22 10:53 Source: patient Mode of arrival: Ambulatory Limitations: No Limitations - History of Present Illness Initial comments: 46-year-old black female with no past medical history presents to the emergency department for evaluation of right arm swelling and pain and tingling. She states that on March 19, she had a left heart cath where access was obtained through her right radial artery. She states that she had some pain since then but over the weekend, she noticed swelling, increased pain and now numbness and tingling to her right arm. She denies chest pain, shortness of breath, fever, or hemoptysis. MD Complaint: extremity pain, extremity swelling -: Gradual, days(s) (6-7) Location: right, upper extremity History of Same: No -: No myalgia, No arthralgia, No fever, No associated dyspnea Severity scale (0 -10): 7 Quality: aching Consistency: constant Associated Symptoms: denies: chest pain, shortness of breath, fever, myalgias, arthralgias, rash - Related Data Previous Rx's Medication Instructions Recorded Last Taken Type Albuterol Mdi (or & Nicu Only) 2 puff IH QID PRN #8.5 gram 10/04/21 Unknown Rx [ProAir HFA Inhaler] Cetirizine HCl [Zyrtec 10mg tab] 10 mg PO DAILY #30 10/04/21 Unknown Rx Ibuprofen [Motrin 800 MG tab] 800 mg PO Q8HR PRN #30 tablet 11/21/21 Unknown Rx Polyethylene Glycol 3350 [Miralax] 119 gm PO DAILY #1 bottle 11/28/21 Unknown Rx Allergies Allergy/AdvReac Type Severity Reaction Status Date / Time latex Allergy Hives Verified 11/21/21 09:36 shellfish derived Allergy Unknown Verified 11/21/21 09:36 ED Review of Systems ROS: Stated complaint: KNOT IN RT ARM/LEG Other details as noted in HPI Comment: All other systems reviewed and negative Constitutional: denies: chills, fever Eyes: denies: vision change ENT: denies: congestion Respiratory: denies: shortness of breath Cardiovascular: denies: chest pain, palpitations Gastrointestinal: denies: abdominal pain, nausea, vomiting Genitourinary: denies: urgency, dysuria Musculoskeletal: denies: back pain Neurological: denies: headache, weakness ED Past Medical Hx - Past Medical History Hx Hypertension: No Hx Heart Attack/AMI: No Hx Congestive Heart Failure: No Hx Diabetes: No Hx GERD: Yes Hx Sickle Cell Disease: No Hx Arthritis: No Hx Asthma: No Hx COPD: No Additional medical history: eczema - Surgical History Hx Coronary Stent: No Hx Open Heart Surgery: No Hx Pacemaker: No Additional Surgical History: x 2. ectopic , heart cath - Social History Smoking Status: Never Smoker - Medications Home Medications: Home Medications Medication Instructions Recorded Confirmed Last Taken Type Albuterol Mdi (or & Nicu Only) 2 puff IH QID PRN #8.5 gram 10/04/21 03/19/22 Unknown Rx [ProAir HFA Inhaler] Cetirizine HCl [Zyrtec 10mg tab] 10 mg PO DAILY #30 10/04/21 03/19/22 Unknown Rx Ibuprofen [Motrin 800 MG tab] 800 mg PO Q8HR PRN #30 tablet 11/21/21 03/19/22 Unknown Rx Polyethylene Glycol 3350 [Miralax] 119 gm PO DAILY #1 bottle 11/28/21 03/19/22 Unknown Rx ED Physical Exam - General Limitations: No Limitations General appearance: alert, in no apparent distress - Head Head exam: Present: atraumatic, normocephalic - Eye Eye exam: Present: normal appearance. Absent: scleral icterus, conjunctival injection, periorbital swelling, periorbital tenderness - Neck Neck exam: Present: normal inspection - Respiratory Respiratory exam: Present: normal lung sounds bilaterally. Absent: respiratory distress, wheezes, rales, rhonchi, stridor, chest wall tenderness - Cardiovascular Cardiovascular Exam: Present: regular rate, normal heart sounds - GI/Abdominal GI/Abdominal exam: Present: soft, normal bowel sounds. Absent: distended, tenderness, guarding, rigid - Extremities Exam Extremities exam: Present: normal capillary refill. Absent: normal inspection, pedal edema, joint swelling, calf tenderness - Expanded Upper Extremity Exam Right Forearm Wrist exam: Present: full ROM, tenderness, swelling. Absent: abrasion, laceration, ecchymosis, deformity, crepidus, dislocation, erythema Vascular: Present: normal capillary refill, radial pulse. Absent: vascular compromise, Pallo, pulse deficit radial art - Back Exam Back exam: Present: normal inspection - Neurological Exam Neurological exam: Present: alert, oriented X3 - Psychiatric Psychiatric exam: Present: normal affect, normal mood - Skin Skin exam: Present: warm, dry, intact, normal color ED Course Vital Signs 04/06/22 04/06/22 08:36 12:48 Temperature 98.6 F Pulse Rate 90 90 Respiratory 14 14 Rate Blood Pressure 113/69 Blood Pressure 113/69 [Right] O2 Sat by Pulse 99 99 Oximetry ED Medical Decision Making - Radiology Data Radiology results: report reviewed, image reviewed Right upper extremity venous Doppler ultrasound: FINDINGS: No venous thrombosis is identified within the visualized extremity vasculature. ADDITIONAL FINDINGS: None. IMPRESSION: 1. No sonographic evidence for DVT in the right upper extremity. - Medical Decision Making 46-year-old black female with no past medical history presents to the emergency department for evaluation of right arm swelling and pain and tingling. She states that on March 19, she had a left heart cath where access was obtained through her right radial artery. She states that she had some pain since then but over the weekend, she noticed swelling, increased pain and now numbness and tingling to her right arm. She denies chest pain, shortness of breath, fever, or hemoptysis. Patient noted to have minimal swelling to the right forearm along examination. Right upper arm venous Doppler negative for DVT. She will be discharged home with naproxen to take as directed, and she is advised to follow with her primary care provider for further evaluation and management or return to the emergency department as needed. She verbalizes understanding of and agreement with plan of care. Critical care attestation.: If time is entered above; I have spent that time in minutes in the direct care of this critically ill patient, excluding procedure time. ED Disposition Clinical Impression: Right arm pain Disposition: HOME / SELF CARE / HOMELESS Is pt being admited?: No Does the pt Need Aspirin: No Condition: Stable Instructions: How to Use Cold Therapy, Gofp-le-Hwew, Musculoskeletal Pain Additional Instructions: Take ibuprofen and tylenol as needed for pain. Follow up with pcp for further evaluation and management. Return to ED as needed. Referrals: ABRAHAM VIVEROS MD [Staff Physician] - 3-5 Days Forms: Work/School Release Form(ED) Time of Disposition: 12:28
[2022-04-06] MEDS ORDERED: LORazepam 2 MG/ML VIAL ONE (14:11)
== END 2022-04-06 12:48 | disposition home or self-care (01) ==
LOC: ED 07:59
DX: M79.601 Pain in right arm (principal); K21.9 Gastro-esophageal reflux disease without esophagitis; L30.9 Dermatitis, unspecified; Z98.890 Other specified postprocedural states; Z91.013 Allergy to seafood; Z91.040 Latex allergy status
CPT/HCPCS: 93971; 99283; J2060

== ENCOUNTER 2022-04-22 06:11 | Day surgery (SDC) | payer BC ==
[2022-04-22] MEDS ORDERED: SODIUM CHLORIDE 0.9% 1000 ML 1,000 ML IV SCH (07:00)
--- NOTE | 2022-04-22 08:18 | Anesthesia Day of Surgery ---
Anesthesia Day of Surgery - Day of Surgery Patient Examined: Yes Patient H&P Reviewed: Yes Patient is NPO: Yes
--- NOTE | 2022-04-22 08:19 | Anesthesia Consultation ---
Anesthesia Consult and Med Hx Date of service: 04/22/22 - Airway Anesthetic Teeth Evaluation: Chipped ROM Head & Neck: Adequate Mental/Hyoid Distance: Adequate Mallampati Class: Class II Intubation Access Assessment: Good - Pre-Operative Health Status ASA Pre-Surgery Classification: ASA3 Proposed Anesthetic Plan: MAC (GA if needed) - Pulmonary Hx Smoking: No Hx Asthma: No Hx Respiratory Symptoms: Yes (Long COVID-negative cardiac w/u) SOB: Yes COPD: No Hx Pneumonia: No Hx Sleep Apnea: No - Cardiovascular System Hx Hypertension: No Hx Coronary Artery Disease: Yes (CHOLESTROL) Hx Heart Attack/AMI: No (Negative heart cath here [id number]) Hx Percutaneous Transluminal Coronary Angioplasty (PTCA): No Hx Pacemaker: No Hx Peripheral Vascular Disease: No - Gastrointestinal Hx Gastroesophageal Reflux Disease: No - Endocrine Hx End Stage Renal Disease: No - Hematic Hx Anemia: No Hx Sickle Cell Disease: No - Other Systems Hx Alcohol Use: No Hx Cancer: No Hx Obesity: No
[2022-04-22] MEDS ORDERED: propofoL 200 MG/20 ML VIAL IV ONE (08:30)
--- NOTE | 2022-04-22 09:18 | Short Stay Summary ---
Short Stay Documentation Date of service: 04/22/22 Narrative H&P: Patient is a 46 yo female who presents for screening colonoscopy. H/o chronic constipation. no changes from gi clinic note. - History H&P: obtained from office - Allergies and Medications Current Medications: Allergies adhesive tape Allergy (Verified 04/22/22 08:58) Unknown shellfish derived Allergy (Verified 04/22/22 08:58) Shortness of Breath Home Medications Medication Instructions Recorded Confirmed Last Taken Type Albuterol Mdi (or & Nicu Only) 2 puff IH QID PRN #8.5 gram 10/04/21 03/19/22 Unknown Rx [ProAir HFA Inhaler] Cetirizine HCl [Zyrtec 10mg tab] 10 mg PO DAILY #30 10/04/21 03/19/22 Unknown Rx Ibuprofen [Motrin 800 MG tab] 800 mg PO Q8HR PRN #30 tablet 11/21/21 03/19/22 Unknown Rx Polyethylene Glycol 3350 [Miralax] 119 gm PO DAILY #1 bottle 11/28/21 03/19/22 Unknown Rx Active Medications Sodium Chloride (Nacl 0.9% 1000 Ml) 1,000 mls @ 50 mls/hr IV DIRECT SABRINA - Physical exam General appearance: no acute distress Lungs: Clear to auscultation Heart: Regular rate Gastrointestinal: normal - Brief post op/procedure progress note Date of procedure: 04/22/22 Pre-op diagnosis: screening for colorectal cancer Post-op diagnosis: other (rectal polyp removed) Procedure: Colonoscopy with biopsy Anesthesia: MAC Findings: small rectal polyp Surgeon: ELIZABETH MOY Estimated blood loss: minimal Pathology: list (Dilcia [place] - rectal polyp) Specimen disposition: to lab - Disposition Condition at discharge: Good Disposition: 01 HOME / SELF CARE / HOMELESS Short Stay Discharge Plan Follow up with: MONICA HAYWOOD MD [Primary Care Provider] - 7 Days
--- NOTE | 2022-04-22 09:21 | Operative Report ---
Operative Report Operative Report: Colonoscopy Procedure Note with biopsy polypectomy Date of procedure: 04/22/2022 Endoscopist: Morgan Ortez Pre-op diagnosis/indication: Screening for colorectal cancer Post-op diagnosis: Small rectal polyp MEDICATIONS: MAC COMPLICATIONS: No immediate complications ESTIMATED BLOOD LOSS: Minimal DESCRIPTION OF PROCEDURE: After consent was obtained, the patient was placed in the left lateral decubitis position. The olympus colonoscope was inserted into the rectum and advanced to the cecum without difficulty. The patient tolerated the procedure well. The views of the mucosa were good. The quality of prep was good. The patients vital signs were monitored continuously throughout the pr ocedure. FINDINGS: There was an ~2 mm sessile polyp in the rectum. The biopsy was removed with cold biopsy forceps and retrieved. Otherwise, the colon appeared normal. IMPRESSION: 1. Small rectal polyp removed with cold biopsy forceps. 2. Otherwise, normal colonoscopy. RECOMMENDATIONS: -follow-up pathology -repeat colonoscopy in 5 years for surveillance based on pathology results
[2022-04-22 10:38] VITALS: BP 120/74
--- NOTE | 2022-04-22 11:27 | Post Anesthesia Evaluation ---
- Post Anesthesia Evaluation Patient Participated: Yes Airway Patent: Yes Stable Respiratory Function: Yes Nausea/Vomiting: No Temp > 96.8F: Yes Pain Manageable: Yes Adequeate Hydration: Yes Anesthesia Complications: No Block Receding Appropriately: Not Applicable Patient on Ventilator: No
== END 2022-04-22 12:00 | disposition home or self-care (01) ==
LOC: GIO 06:11
PROVIDERS: ATTEND Internal Medicine Gastroenterology
DX: K59.00 Constipation, unspecified (principal); R10.9 Unspecified abdominal pain; K62.1 Rectal polyp; I25.10 Atherosclerotic heart disease of native coronary artery without angina pectoris; E78.00 Pure hypercholesterolemia, unspecified; K21.9 Gastro-esophageal reflux disease without esophagitis; Z91.013 Allergy to seafood; Z88.8 Allergy status to other drugs, medicaments and biological substances; Z79.899 Other long term (current) drug therapy; Z98.890 Other specified postprocedural states; Z82.5 Family history of asthma and other chronic lower respiratory diseases
CPT/HCPCS: 45380; 81025; 88305; J2704; J7030